=== PATIENT | male | born 1990 | race American Indian/Alaskan Native ===

== ENCOUNTER 2020-09-12 10:07 | Outpatient (CLI) | payer MEDICAID ==
[2020-09-12] MEDS ORDERED: LIDOCAINE (4%) 40 MG/ML TOPICAL SOLN 50 ML BOTTLE TP ONE (10:34)
== END 2020-09-12 10:08 | disposition home or self-care (01) ==
LOC: WOUND 10:07
PROVIDERS: ATTEND Surgery
DX: S81.802A Unspecified open wound, left lower leg, initial encounter (principal); L97.822 Non-pressure chronic ulcer of other part of left lower leg with fat layer exposed; D57.1 Sickle-cell disease without crisis; F20.9 Schizophrenia, unspecified; X58.XXXA Exposure to other specified factors, initial encounter; Y93.89 Activity, other specified; Y92.89 Other specified places as the place of occurrence of the external cause; Y99.8 Other external cause status
CPT/HCPCS: 11042; G0463; 99204

== ENCOUNTER 2020-09-26 08:36 | Outpatient (CLI) | payer MEDICAID ==
[2020-09-26] MEDS ORDERED: LIDOCAINE (4%) 40 MG/ML TOPICAL SOLN 50 ML BOTTLE TP ONE (09:06)
== END 2020-09-26 08:37 | disposition home or self-care (01) ==
LOC: WOUND 08:36
PROVIDERS: ATTEND Surgery
DX: S81.802D Unspecified open wound, left lower leg, subsequent encounter (principal); L97.822 Non-pressure chronic ulcer of other part of left lower leg with fat layer exposed; D57.1 Sickle-cell disease without crisis; F20.9 Schizophrenia, unspecified; X58.XXXD Exposure to other specified factors, subsequent encounter

== ENCOUNTER 2020-10-10 08:42 | Outpatient (CLI) | payer MEDICAID ==
[2020-10-10] MEDS ORDERED: LIDOCAINE (4%) 40 MG/ML TOPICAL SOLN 50 ML BOTTLE TP ONE (09:08)
== END 2020-10-10 08:43 | disposition home or self-care (01) ==
LOC: WOUND 08:42
PROVIDERS: ATTEND Surgery
DX: S81.802D Unspecified open wound, left lower leg, subsequent encounter (principal); L97.822 Non-pressure chronic ulcer of other part of left lower leg with fat layer exposed; D57.1 Sickle-cell disease without crisis; F20.9 Schizophrenia, unspecified; X58.XXXD Exposure to other specified factors, subsequent encounter

== ENCOUNTER 2020-10-24 08:38 | Outpatient (CLI) | payer MEDICAID ==
[2020-10-24] MEDS ORDERED: LIDOCAINE (4%) 40 MG/ML TOPICAL SOLN 50 ML BOTTLE TP ONE (08:41)
== END 2020-10-24 08:39 | disposition home or self-care (01) ==
LOC: WOUND 08:38
PROVIDERS: ATTEND Surgery
DX: S81.802D Unspecified open wound, left lower leg, subsequent encounter (principal); D57.1 Sickle-cell disease without crisis; F20.9 Schizophrenia, unspecified; X58.XXXD Exposure to other specified factors, subsequent encounter

== ENCOUNTER 2020-11-21 08:05 | Outpatient (CLI) | payer MEDICAID ==
[2020-11-21] MEDS ORDERED: LIDOCAINE (4%) 40 MG/ML TOPICAL SOLN 50 ML BOTTLE TP ONE (08:28)
== END 2020-11-21 08:06 | disposition home or self-care (01) ==
LOC: WOUND 08:05
PROVIDERS: ATTEND Surgery
DX: S81.802D Unspecified open wound, left lower leg, subsequent encounter (principal); D57.1 Sickle-cell disease without crisis; F20.9 Schizophrenia, unspecified; X58.XXXD Exposure to other specified factors, subsequent encounter

== ENCOUNTER 2020-12-19 09:35 | Outpatient (CLI) | payer MEDICAID ==
[2020-12-19] MEDS ORDERED: LIDOCAINE (4%) 40 MG/ML TOPICAL SOLN 50 ML BOTTLE TP ONE (09:55)
[2020-12-19] MEDS ORDERED: SILVER NITRATE APPLICATOR 1 EA TP ONE (12:06)
== END 2020-12-19 09:36 | disposition home or self-care (01) ==
LOC: WOUND 09:35
PROVIDERS: ATTEND Surgery
DX: I87.312 Chronic venous hypertension (idiopathic) with ulcer of left lower extremity (principal); L97.822 Non-pressure chronic ulcer of other part of left lower leg with fat layer exposed; S81.802D Unspecified open wound, left lower leg, subsequent encounter; D57.1 Sickle-cell disease without crisis; F20.9 Schizophrenia, unspecified; X58.XXXD Exposure to other specified factors, subsequent encounter

== ENCOUNTER 2021-01-09 09:05 | Outpatient (CLI) | payer MEDICAID ==
[2021-01-09] MEDS ORDERED: LIDOCAINE (4%) 40 MG/ML TOPICAL SOLN 50 ML BOTTLE TP ONE (09:12)
== END 2021-01-09 09:06 | disposition home or self-care (01) ==
LOC: WOUND 09:05
PROVIDERS: ATTEND Surgery
DX: I87.312 Chronic venous hypertension (idiopathic) with ulcer of left lower extremity (principal); L97.822 Non-pressure chronic ulcer of other part of left lower leg with fat layer exposed; S81.802D Unspecified open wound, left lower leg, subsequent encounter; D57.1 Sickle-cell disease without crisis; F20.9 Schizophrenia, unspecified; X58.XXXD Exposure to other specified factors, subsequent encounter

== ENCOUNTER 2021-01-16 09:19 | Outpatient (CLI) | payer MEDICAID ==
[2021-01-16] MEDS ORDERED: LIDOCAINE (4%) 40 MG/ML TOPICAL SOLN 50 ML BOTTLE TP ONE (09:37)
== END 2021-01-16 09:20 | disposition home or self-care (01) ==
LOC: WOUND 09:19
PROVIDERS: ATTEND Surgery
DX: I87.312 Chronic venous hypertension (idiopathic) with ulcer of left lower extremity (principal); L97.822 Non-pressure chronic ulcer of other part of left lower leg with fat layer exposed; S81.802D Unspecified open wound, left lower leg, subsequent encounter; D57.1 Sickle-cell disease without crisis; F20.9 Schizophrenia, unspecified; X58.XXXD Exposure to other specified factors, subsequent encounter
CPT/HCPCS: 15271; Q4186

== ENCOUNTER 2021-01-23 09:11 | Outpatient (CLI) | payer MEDICAID ==
[2021-01-23] MEDS ORDERED: LIDOCAINE (4%) 40 MG/ML TOPICAL SOLN 50 ML BOTTLE TP ONE (09:26)
[2021-01-23] MEDS ORDERED: SILVER NITRATE APPLICATOR 1 EA TP ONE (17:00)
== END 2021-01-23 09:12 | disposition home or self-care (01) ==
LOC: WOUND 09:11
PROVIDERS: ATTEND Surgery
DX: I87.312 Chronic venous hypertension (idiopathic) with ulcer of left lower extremity (principal); L97.822 Non-pressure chronic ulcer of other part of left lower leg with fat layer exposed; S81.802D Unspecified open wound, left lower leg, subsequent encounter; D57.1 Sickle-cell disease without crisis; F20.9 Schizophrenia, unspecified; X58.XXXD Exposure to other specified factors, subsequent encounter

== ENCOUNTER 2021-01-30 08:56 | Outpatient (CLI) | payer MEDICAID ==
[2021-01-30] MEDS ORDERED: LIDOCAINE (4%) 40 MG/ML TOPICAL SOLN 50 ML BOTTLE TP ONE (09:26)
[2021-01-30] MEDS ORDERED: SILVER NITRATE APPLICATOR 1 EA TP ONE (09:46)
== END 2021-01-30 08:57 | disposition home or self-care (01) ==
LOC: WOUND 08:56
PROVIDERS: ATTEND Surgery
DX: I87.312 Chronic venous hypertension (idiopathic) with ulcer of left lower extremity (principal); L97.822 Non-pressure chronic ulcer of other part of left lower leg with fat layer exposed; S81.802D Unspecified open wound, left lower leg, subsequent encounter; D57.1 Sickle-cell disease without crisis; F20.9 Schizophrenia, unspecified; X58.XXXD Exposure to other specified factors, subsequent encounter

== ENCOUNTER 2021-02-06 09:06 | Outpatient (CLI) | payer MEDICAID ==
[2021-02-06] MEDS ORDERED: LIDOCAINE (4%) 40 MG/ML TOPICAL SOLN 50 ML BOTTLE TP ONE (09:40)
== END 2021-02-06 09:07 | disposition home or self-care (01) ==
LOC: WOUND 09:06
PROVIDERS: ATTEND Surgery
DX: I87.312 Chronic venous hypertension (idiopathic) with ulcer of left lower extremity (principal); L97.822 Non-pressure chronic ulcer of other part of left lower leg with fat layer exposed; S81.802D Unspecified open wound, left lower leg, subsequent encounter; D57.1 Sickle-cell disease without crisis; F20.9 Schizophrenia, unspecified; X58.XXXD Exposure to other specified factors, subsequent encounter
CPT/HCPCS: 15271; Q4186

== ENCOUNTER 2021-02-20 09:05 | Outpatient (CLI) | payer MEDICAID ==
[2021-02-20] MEDS ORDERED: LIDOCAINE (4%) 40 MG/ML TOPICAL SOLN 50 ML BOTTLE TP ONE ×2 (09:12→18:00)
== END 2021-02-20 09:06 | disposition home or self-care (01) ==
LOC: WOUND 09:05
PROVIDERS: ATTEND Surgery
DX: I87.312 Chronic venous hypertension (idiopathic) with ulcer of left lower extremity (principal); L97.822 Non-pressure chronic ulcer of other part of left lower leg with fat layer exposed; L84 Corns and callosities; I87.301 Chronic venous hypertension (idiopathic) without complications of right lower extremity; S81.802D Unspecified open wound, left lower leg, subsequent encounter; D57.1 Sickle-cell disease without crisis; F20.9 Schizophrenia, unspecified; X58.XXXD Exposure to other specified factors, subsequent encounter

== ENCOUNTER 2021-03-06 08:53 | Outpatient (CLI) | payer MEDICAID ==
[2021-03-06] MEDS ORDERED: LIDOCAINE (4%) 40 MG/ML TOPICAL SOLN 50 ML BOTTLE TP ONE ×2 (09:28→12:17)
== END 2021-03-06 08:54 | disposition home or self-care (01) ==
LOC: WOUND 08:53
PROVIDERS: ATTEND Surgery
DX: I87.312 Chronic venous hypertension (idiopathic) with ulcer of left lower extremity (principal); L97.822 Non-pressure chronic ulcer of other part of left lower leg with fat layer exposed; L84 Corns and callosities; I87.301 Chronic venous hypertension (idiopathic) without complications of right lower extremity; S81.802D Unspecified open wound, left lower leg, subsequent encounter; D57.1 Sickle-cell disease without crisis; F20.9 Schizophrenia, unspecified; X58.XXXD Exposure to other specified factors, subsequent encounter

== ENCOUNTER 2021-03-20 08:35 | Outpatient (CLI) | payer MEDICAID ==
[2021-03-20] MEDS ORDERED: LIDOCAINE (4%) 40 MG/ML TOPICAL SOLN 50 ML BOTTLE TP ONE (08:51)
== END 2021-03-20 08:36 | disposition home or self-care (01) ==
LOC: WOUND 08:35
PROVIDERS: ATTEND Surgery
DX: I87.312 Chronic venous hypertension (idiopathic) with ulcer of left lower extremity (principal); L97.822 Non-pressure chronic ulcer of other part of left lower leg with fat layer exposed; L84 Corns and callosities; I87.301 Chronic venous hypertension (idiopathic) without complications of right lower extremity; S81.802D Unspecified open wound, left lower leg, subsequent encounter; D57.1 Sickle-cell disease without crisis; F20.9 Schizophrenia, unspecified; X58.XXXD Exposure to other specified factors, subsequent encounter

== ENCOUNTER 2021-04-03 08:21 | Outpatient (CLI) | payer MEDICAID ==
[2021-04-03] MEDS ORDERED: LIDOCAINE (4%) 40 MG/ML TOPICAL SOLN 50 ML BOTTLE TP SCH (08:30)
== END 2021-04-03 08:22 | disposition home or self-care (01) ==
LOC: WOUND 08:21
PROVIDERS: ATTEND Surgery
DX: I87.312 Chronic venous hypertension (idiopathic) with ulcer of left lower extremity (principal); L97.822 Non-pressure chronic ulcer of other part of left lower leg with fat layer exposed; L84 Corns and callosities; I87.301 Chronic venous hypertension (idiopathic) without complications of right lower extremity; S81.802D Unspecified open wound, left lower leg, subsequent encounter; D57.1 Sickle-cell disease without crisis; F20.9 Schizophrenia, unspecified; X58.XXXD Exposure to other specified factors, subsequent encounter